=== PATIENT | male | born 1940 | race Caucasian/White ===

== ENCOUNTER 2020-05-08 06:13 | Inpatient (IN) ==
[2020-05-03 12:52] LABS: Basophils # 0.1 10*3/uL (0.0-0.2); Basophils % 0.9 % (0.0-0.8); Eosinophils # 0.1 10*3/uL (0.0-0.87); Hematocrit 44.9 VOL% (42.0-52.0); Hemoglobin 14.5 GM/DL (14.0-18.0); Immature Granulocytes % 0.7 %; Immature Granulocytes Absolute 0.06 #; Lymphocytes # 1.2 10*3/uL (1.4-4.0); Lymphocytes % 14.3 % (21.2-54.2); Mean Corpuscular HGB Conc 32.3 GM/DL (32-36); Mean Corpuscular Volume 90.3 FL (87-102); Mean Platelet Volume 9.1 FL (9.6-12.0); Monocytes % 7.6 % (1.7-12.7); Neutrophils % 75.5 % (38.7-73.9); Platelet Count 377 T/CUMM (130-400); Red Blood Count 4.97 MC/CUMM (3.8-5.5); Red Cell Distribution Width 16.1 % (9.3-17.3); White Blood Count 8.7 T/CUMM (4-12)
[2020-05-03 13:22] LABS: Calcium 9.4 MG/DL (8.5-10.1); Osmolality,Calculated 268.2 MOS/KG (273-304); Potassium 4.6 MMOL/L (3.5-5.1)
[2020-05-08] MEDS ORDERED: ERTAPENEM 1,000 MG in SODIUM CHLORIDE 0.9% 100 ML IV ONE (06:30)
[2020-05-08] MEDS ORDERED: LACTATED RINGERS 1,000 ML IV SCH (10:30)
[2020-05-08] MEDS ORDERED: ROPIVACAINE 0.5% 30 ML VIAL ONE (11:28)
[2020-05-08] MEDS ORDERED: LIDOCAINE 1% 5 ML VIAL ONE (11:28)
[2020-05-08] MEDS ORDERED: DEXAMETHASONE 4 MG/1 ML VIAL ONE (11:28)
[2020-05-08] MEDS ORDERED: MIDAZOLAM 2 MG/2 ML VIAL ONE (11:29)
[2020-05-08] MEDS ORDERED: fentaNYL 250 MCG/5 ML VIAL ONE (11:29)
[2020-05-08] MEDS ORDERED: ROCURONIUM 50 MG/5 ML VIAL IV ONE ×3 (12:32→13:56)
[2020-05-08] MEDS ORDERED: SEVOFLURANE 1 UNIT/15 MINUTE INH ONE (12:32)
[2020-05-08] MEDS ORDERED: ONDANSETRON 4 MG/2 ML VIAL ONE (12:32)
[2020-05-08] MEDS ORDERED: LACTATED RINGERS 1,000 ML IV ONE ×2 (12:32→16:46)
[2020-05-08] MEDS ORDERED: propofoL 200 MG/20 ML VIAL IV ONE (12:32)
[2020-05-08] MEDS ORDERED: PHENYLEPHRINE 1 MG/10 ML SYRINGE IV ONE ×2 (12:32→12:46)
[2020-05-08] MEDS ORDERED: LIDOCAINE 2% 5 ML VIAL ONE (12:32)
[2020-05-08] MEDS ORDERED: ACETAMINOPHEN 1,000 MG/100 ML VIAL IV ONE (12:32)
[2020-05-08] MEDS ORDERED: ETOMIDATE 40 MG/20 ML VIAL IV ONE (12:32)
[2020-05-08] MEDS ORDERED: fentaNYL 100 MCG/2 ML VIAL ONE (13:53)
[2020-05-08] MEDS ORDERED: NEOSTIGMINE 10 MG/10 ML VIAL ONE (16:46)
[2020-05-08] MEDS ORDERED: GLYCOPYRROLATE 0.4 MG/2 ML VIAL ONE (16:46)
[2020-05-08] MEDS ORDERED: ACETAMINOPHEN 325 MG TABLET PO PRN (16:53)
[2020-05-08 17:18] LABS: Bacteria,Urine Occasional /HPF (Few); Bilirubin,Urine Negative (Negative); Blood, Urine Small mg/dL (Negative); Glucose,Urine (UA) Negative (Negative); Ketones,Urine Negative (Negative); Mucus,Urine Occasional /LPF (Occasional); Nitrite,Urine Negative (Negative); Protein,Urine Negative; RBC,Urine 1 /HPF (0-4); Squamous Epithelial Cell,Urine Occasional /HPF (0-10); Urine Appearance CLEAR (Clear); Urine Color Yellow (Yellow); Urine Specific Gravity 1.008 (1.001-1.035); Urine Urobilinogen < 2.0 EU/DL (0.2-1.0); WBC,Urine 43 /HPF (0-6)
[2020-05-08] MEDS: DEXTROSE 5% LACTATED RINGERS 1,000 ML IV SCH (17:30)
[2020-05-08] MEDS: HYDROmorphone 2 MG/1 ML VIAL IV PRN ×2 (19:15→23:15)
[2020-05-08] MEDS: PIPERACILLIN/TAZOBACTAM 3,375 MG in SODIUM CHLORIDE 0.9% 100 ML IV SCH (22:36)
[2020-05-09] MEDS: DEXTROSE 5% LACTATED RINGERS 1,000 ML IV SCH (02:10)
[2020-05-09] MEDS: HYDROmorphone 2 MG/1 ML VIAL IV PRN ×2 (04:29→14:17)
[2020-05-09] MEDS: PIPERACILLIN/TAZOBACTAM 3,375 MG in SODIUM CHLORIDE 0.9% 100 ML IV SCH ×3 (04:32→21:22)
[2020-05-09 06:56] LABS: Basophils % 0.2 % (0.0-0.8); Hematocrit 38.4 VOL% (42.0-52.0); Immature Granulocytes % 0.5 %; Immature Granulocytes Absolute 0.06 #; Lymphocytes # 0.5 10*3/uL (1.4-4.0); Lymphocytes % 3.9 % (21.2-54.2); Mean Corpuscular HGB Conc 33.9 GM/DL (32-36); Mean Corpuscular Volume 88.9 FL (87-102); Mean Platelet Volume 9.4 FL (9.6-12.0); Monocytes % 7.3 % (1.7-12.7); Neutrophils % 88.1 % (38.7-73.9); Platelet Count 271 T/CUMM (130-400); Red Blood Count 4.32 MC/CUMM (3.8-5.5); Red Cell Distribution Width 16.8 % (9.3-17.3); White Blood Count 12.6 T/CUMM (4-12)
[2020-05-09 07:21] LABS: Calcium 8.6 MG/DL (8.5-10.1); Osmolality,Calculated 275.1 MOS/KG (273-304); Potassium 4.2 MMOL/L (3.5-5.1)
[2020-05-09 07:22] LABS: Band Neutrophils 2 % (0-10); Hypochromasia 1+; Lymphocytes 3 % (20-55); Microcytosis 1+; Segmented Neutrophils 92 % (50-85); Total Cells Counted 100
[2020-05-09] MEDS: ENOXAPARIN 40 MG/0.4 ML SYRINGE SUBCUT SCH (10:01)
[2020-05-09] MEDS: PANTOPRAZOLE 40 MG TABLET PO SCH (10:01)
[2020-05-10] MEDS: DEXTROSE 5% LACTATED RINGERS 1,000 ML IV SCH ×4 (00:27→20:41)
[2020-05-10] MEDS: ONDANSETRON 4 MG/2 ML VIAL IV PRN (01:45)
[2020-05-10] MEDS: PIPERACILLIN/TAZOBACTAM 3,375 MG in SODIUM CHLORIDE 0.9% 100 ML IV SCH ×3 (05:38→21:17)
[2020-05-10 07:39] LABS: Basophils % 0.1 % (0.0-0.8); Hematocrit 35.8 VOL% (42.0-52.0); Hemoglobin 11.9 GM/DL (14.0-18.0); Immature Granulocytes % 0.6 %; Immature Granulocytes Absolute 0.09 #; Lymphocytes # 0.6 10*3/uL (1.4-4.0); Lymphocytes % 3.9 % (21.2-54.2); Mean Corpuscular HGB Conc 33.2 GM/DL (32-36); Mean Corpuscular Volume 89.9 FL (87-102); Mean Platelet Volume 9.1 FL (9.6-12.0); Monocytes % 3.8 % (1.7-12.7); Neutrophils % 91.6 % (38.7-73.9); Platelet Count 312 T/CUMM (130-400); Red Blood Count 3.98 MC/CUMM (3.8-5.5); Red Cell Distribution Width 16.9 % (9.3-17.3); White Blood Count 14.1 T/CUMM (4-12)
[2020-05-10 07:49] LABS: Osmolality,Calculated 276.1 MOS/KG (273-304); Potassium 3.9 MMOL/L (3.5-5.1)
[2020-05-10] MEDS: PANTOPRAZOLE 40 MG TABLET PO SCH (08:55)
[2020-05-10] MEDS: ENOXAPARIN 40 MG/0.4 ML SYRINGE SUBCUT SCH (08:56)
[2020-05-10 10:06] LABS: Band Neutrophils 3 % (0-10); Lymphocytes 2 % (20-55); Platelet Estimate Normal; Segmented Neutrophils 92 % (50-85); Total Cells Counted 100
[2020-05-10] MEDS: METHOCARBAMOL INJ 500 MG in SODIUM CHLORIDE 0.9% 100 ML IV SCH ×2 (11:21→20:40)
[2020-05-11] MEDS: HYDROmorphone 2 MG/1 ML VIAL IV PRN ×2 (02:13→17:41)
[2020-05-11] MEDS: METHOCARBAMOL INJ 500 MG in SODIUM CHLORIDE 0.9% 100 ML IV SCH ×3 (03:55→20:57)
[2020-05-11] MEDS: PIPERACILLIN/TAZOBACTAM 3,375 MG in SODIUM CHLORIDE 0.9% 100 ML IV SCH ×3 (06:07→21:46)
[2020-05-11] MEDS: DEXTROSE 5% LACTATED RINGERS 1,000 ML IV SCH ×3 (08:26→22:15)
[2020-05-11] MEDS: PANTOPRAZOLE 40 MG TABLET PO SCH (08:26)
[2020-05-11] MEDS: ENOXAPARIN 40 MG/0.4 ML SYRINGE SUBCUT SCH (08:26)
[2020-05-11 11:49] LABS: Basophils % 0.1 % (0.0-0.8); Eosinophils % 0.1 % (0.00-10.9); Hematocrit 34.9 VOL% (42.0-52.0); Hemoglobin 11.3 GM/DL (14.0-18.0); Immature Granulocytes Absolute 0.29 #; Lymphocytes # 0.5 10*3/uL (1.4-4.0); Lymphocytes % 3.6 % (21.2-54.2); Mean Corpuscular HGB Conc 32.4 GM/DL (32-36); Mean Corpuscular Volume 91.8 FL (87-102); Mean Platelet Volume 9.3 FL (9.6-12.0); Monocytes % 2.9 % (1.7-12.7); Neutrophils % 91.3 % (38.7-73.9); Platelet Count 300 T/CUMM (130-400); Red Cell Distribution Width 16.9 % (9.3-17.3); White Blood Count 14.5 T/CUMM (4-12)
[2020-05-11 12:05] LABS: Calcium 8.6 MG/DL (8.5-10.1); Osmolality,Calculated 277.7 MOS/KG (273-304); Potassium 3.8 MMOL/L (3.5-5.1)
[2020-05-11 12:21] LABS: Anisocytosis 1+; Band Neutrophils 2 % (0-10); Hypersegmented Neutrophil Few; Lymphocytes 4 % (20-55); Macrocytosis Slight; Platelet Estimate Normal; Segmented Neutrophils 92 % (50-85); Total Cells Counted 100
[2020-05-12] MEDS: METHOCARBAMOL INJ 500 MG in SODIUM CHLORIDE 0.9% 100 ML IV SCH ×3 (03:53→20:20)
[2020-05-12] MEDS: DEXTROSE 5% LACTATED RINGERS 1,000 ML IV SCH ×3 (05:07→20:19)
[2020-05-12] MEDS: PIPERACILLIN/TAZOBACTAM 3,375 MG in SODIUM CHLORIDE 0.9% 100 ML IV SCH (05:59)
[2020-05-12 07:17] LABS: Basophils % 0.1 % (0.0-0.8); Eosinophils % 0.1 % (0.00-10.9); Hematocrit 33.3 VOL% (42.0-52.0); Hemoglobin 11.1 GM/DL (14.0-18.0); Immature Granulocytes % 1.2 %; Immature Granulocytes Absolute 0.14 #; Lymphocytes # 0.6 10*3/uL (1.4-4.0); Lymphocytes % 4.7 % (21.2-54.2); Mean Corpuscular HGB Conc 33.3 GM/DL (32-36); Mean Corpuscular Volume 90.7 FL (87-102); Mean Platelet Volume 9.4 FL (9.6-12.0); Monocytes % 4.3 % (1.7-12.7); Neutrophils % 89.6 % (38.7-73.9); Platelet Count 278 T/CUMM (130-400); Red Blood Count 3.67 MC/CUMM (3.8-5.5); Red Cell Distribution Width 17.2 % (9.3-17.3); White Blood Count 11.6 T/CUMM (4-12)
[2020-05-12 07:26] LABS: Calcium 8.9 MG/DL (8.5-10.1); Potassium 3.5 MMOL/L (3.5-5.1)
[2020-05-12 07:58] LABS: Band Neutrophils 2 % (0-10); Lymphocytes 6 % (20-55); Platelet Estimate Normal; Segmented Neutrophils 86 % (50-85); Total Cells Counted 100
[2020-05-12 07:59] LABS: Anisocytosis 2+; Macrocytosis Slight
[2020-05-12] MEDS: PANTOPRAZOLE 40 MG TABLET PO SCH (08:25)
[2020-05-12] MEDS: ENOXAPARIN 40 MG/0.4 ML SYRINGE SUBCUT SCH (08:25)
[2020-05-12] MEDS: HYDROmorphone 2 MG/1 ML VIAL IV PRN ×2 (08:27→13:29)
[2020-05-13] MEDS: HYDROmorphone 2 MG/1 ML VIAL IV PRN ×2 (02:44→17:57)
[2020-05-13 04:38] LABS: Basophils % 0.2 % (0.0-0.8); Eosinophils % 0.2 % (0.00-10.9); Hemoglobin 10.1 GM/DL (14.0-18.0); Immature Granulocytes % 1.3 %; Immature Granulocytes Absolute 0.12 #; Lymphocytes # 0.7 10*3/uL (1.4-4.0); Lymphocytes % 7.2 % (21.2-54.2); Mean Corpuscular HGB Conc 33.7 GM/DL (32-36); Mean Platelet Volume 9.5 FL (9.6-12.0); Monocytes % 6.7 % (1.7-12.7); Neutrophils % 84.4 % (38.7-73.9); Platelet Count 258 T/CUMM (130-400); Red Blood Count 3.37 MC/CUMM (3.8-5.5); Red Cell Distribution Width 17.2 % (9.3-17.3); White Blood Count 9.2 T/CUMM (4-12)
[2020-05-13] MEDS: METHOCARBAMOL INJ 500 MG in SODIUM CHLORIDE 0.9% 100 ML IV SCH ×3 (04:53→22:13)
[2020-05-13] MEDS: DEXTROSE 5% LACTATED RINGERS 1,000 ML IV SCH (05:00)
[2020-05-13 05:04] LABS: Calcium 8.3 MG/DL (8.5-10.1); Osmolality,Calculated 279.5 MOS/KG (273-304); Potassium 3.2 MMOL/L (3.5-5.1)
[2020-05-13] MEDS: ENOXAPARIN 40 MG/0.4 ML SYRINGE SUBCUT SCH (08:40)
[2020-05-13] MEDS: PANTOPRAZOLE 40 MG TABLET PO SCH (09:29)
[2020-05-14] MEDS: DEXTROSE 5% LACTATED RINGERS 1,000 ML IV SCH ×2 (04:50→07:30)
[2020-05-14] MEDS: METHOCARBAMOL INJ 500 MG in SODIUM CHLORIDE 0.9% 100 ML IV SCH ×3 (04:57→20:47)
[2020-05-14] MEDS: ENOXAPARIN 40 MG/0.4 ML SYRINGE SUBCUT SCH (08:52)
[2020-05-14] MEDS: PANTOPRAZOLE 40 MG TABLET PO SCH (09:53)
[2020-05-14] MEDS: HYDROmorphone 2 MG/1 ML VIAL IV PRN (12:10)
[2020-05-14] MEDS ORDERED: SELENIUM IV SCH (17:00)
[2020-05-14] MEDS ORDERED: MULTIVITAMIN IV SCH (17:00)
[2020-05-14] MEDS ORDERED: MANGANESE IV SCH (17:00)
[2020-05-14] MEDS ORDERED: ZINC IV SCH (17:00)
[2020-05-14] MEDS ORDERED: TRACE ELEMENTS (5) 1 ML in AMINO ACIDS/DEXT/LYTES 4.25-5% 2,000 ML IV SCH (17:00)
[2020-05-14] MEDS ORDERED: COPPER IV SCH (17:00)
[2020-05-14] MEDS ORDERED: [UNRECOGNIZED DRUG - OTHER] IV SCH (17:00)
[2020-05-15] MEDS: DEXTROSE 5% LACTATED RINGERS 1,000 ML IV SCH ×5 (02:14→16:32)
[2020-05-15] MEDS: METHOCARBAMOL INJ 500 MG in SODIUM CHLORIDE 0.9% 100 ML IV SCH ×3 (03:38→21:31)
[2020-05-15 06:03] LABS: Calcium 8.2 MG/DL (8.5-10.1); Osmolality,Calculated 278.7 MOS/KG (273-304); Potassium 2.7 MMOL/L (3.5-5.1)
[2020-05-15] MEDS: ENOXAPARIN 40 MG/0.4 ML SYRINGE SUBCUT SCH (09:43)
[2020-05-15] MEDS: PANTOPRAZOLE 40 MG TABLET PO SCH (09:43)
[2020-05-15] MEDS: POTASSIUM CHLORIDE RIDER 10 MEQ in PREMIX 1 EACH IV PRN ×2 (11:00→12:01)
[2020-05-15] MEDS ORDERED: SELENIUM IV SCH (12:30)
[2020-05-15] MEDS ORDERED: ZINC IV SCH (12:30)
[2020-05-15] MEDS ORDERED: MANGANESE IV SCH (12:30)
[2020-05-15] MEDS ORDERED: MULTIVITAMIN IV SCH (12:30)
[2020-05-15] MEDS ORDERED: POTASSIUM CHLORIDE RIDER 10 MEQ in PREMIX 1 EACH IV SCH (12:30)
[2020-05-15] MEDS ORDERED: COPPER IV SCH (12:30)
[2020-05-15] MEDS ORDERED: [UNRECOGNIZED DRUG - OTHER] IV SCH (12:30)
[2020-05-15] MEDS ORDERED: POTASSIUM PHOSPHATE 30 MMOL in SODIUM CHLORIDE 0.9% 250 ML IV ONE (13:00)
[2020-05-15] MEDS ORDERED: TRACE ELEMENTS (5) 1 ML, MULTIVITAMIN INJ 10 ML in AMINO ACIDS/DEXT/LYTES 4.25-5% 2,000 ML IV SCH (17:00)
[2020-05-15] MEDS: MANGANESE IV SCH (17:39)
[2020-05-15] MEDS: MULTIVITAMIN IV SCH (17:39)
[2020-05-15] MEDS: SELENIUM IV SCH (17:39)
[2020-05-15] MEDS: COPPER IV SCH (17:39)
[2020-05-15] MEDS: ZINC IV SCH (17:39)
[2020-05-15] MEDS: [UNRECOGNIZED DRUG - OTHER] IV SCH (17:39)
[2020-05-16] MEDS: POTASSIUM CHLORIDE RIDER 10 MEQ in PREMIX 1 EACH IV PRN ×4 (02:30→21:51)
[2020-05-16] MEDS: METHOCARBAMOL INJ 500 MG in SODIUM CHLORIDE 0.9% 100 ML IV SCH ×2 (04:51→16:59)
[2020-05-16 05:50] LABS: Basophils % 0.4 % (0.0-0.8); Eosinophils # 0.3 10*3/uL (0.0-0.87); Hematocrit 28.6 VOL% (42.0-52.0); Hemoglobin 9.9 GM/DL (14.0-18.0); Immature Granulocytes % 6.1 %; Lymphocytes # 1.1 10*3/uL (1.4-4.0); Lymphocytes % 10.9 % (21.2-54.2); Mean Corpuscular HGB Conc 34.6 GM/DL (32-36); Mean Corpuscular Volume 86.1 FL (87-102); Monocytes % 9.3 % (1.7-12.7); Neutrophils % 70.3 % (38.7-73.9); Platelet Count 277 T/CUMM (130-400); Red Blood Count 3.32 MC/CUMM (3.8-5.5); Red Cell Distribution Width 17.3 % (9.3-17.3); White Blood Count 9.8 T/CUMM (4-12)
[2020-05-16 06:09] LABS: Calcium 8.6 MG/DL (8.5-10.1); Osmolality,Calculated 272.2 MOS/KG (273-304)
[2020-05-16 06:11] LABS: Calcium 8.2 MG/DL (8.5-10.1); Potassium 3.1 MMOL/L (3.5-5.1)
[2020-05-16 06:25] LABS: Atypical Lymphocytes Few; Band Neutrophils 5 % (0-10); Eosinophils 6 % (0-10); Lymphocytes 19 % (20-55); Myelocytes 1 %; Platelet Estimate Normal; Segmented Neutrophils 63 % (50-85); Total Cells Counted 100
[2020-05-16 06:26] LABS: Anisocytosis 1+
[2020-05-16] MEDS: DEXTROSE 5% LACTATED RINGERS 1,000 ML IV SCH ×2 (08:15→12:53)
[2020-05-16] MEDS: PANTOPRAZOLE 40 MG TABLET PO SCH (08:18)
[2020-05-16] MEDS ORDERED: POTASSIUM PHOSPHATE 30 MMOL in SODIUM CHLORIDE 0.9% 250 ML IV ONE (08:30)
[2020-05-16] MEDS: ENOXAPARIN 40 MG/0.4 ML SYRINGE SUBCUT SCH (09:41)
[2020-05-16] MEDS: ONDANSETRON 4 MG/2 ML VIAL IV PRN (09:41)
[2020-05-16] MEDS: FAT EMULSION 20% 250 ML IV SCH (13:50)
[2020-05-16 14:12] LABS: Calcium 8.2 MG/DL (8.5-10.1); Potassium 3.4 MMOL/L (3.5-5.1)
[2020-05-16] MEDS: SELENIUM IV SCH (17:01)
[2020-05-16] MEDS: MANGANESE IV SCH (17:01)
[2020-05-16] MEDS: ZINC IV SCH (17:01)
[2020-05-16] MEDS: COPPER IV SCH (17:01)
[2020-05-16] MEDS: [UNRECOGNIZED DRUG - OTHER] IV SCH (17:01)
[2020-05-16] MEDS: MULTIVITAMIN IV SCH (17:01)
[2020-05-17] MEDS: METHOCARBAMOL INJ 500 MG in SODIUM CHLORIDE 0.9% 100 ML IV SCH (00:30)
[2020-05-17] MEDS: POTASSIUM CHLORIDE RIDER 10 MEQ in PREMIX 1 EACH IV PRN ×3 (01:34→16:28)
[2020-05-17] MEDS: DEXTROSE 5% LACTATED RINGERS 1,000 ML IV SCH ×3 (03:14→15:55)
[2020-05-17] MEDS ORDERED: MAGNESIUM SULF RIDER 2 GM in PREMIX 1 EACH IV ONE (07:30)
[2020-05-17 07:40] LABS: Basophils % 0.3 % (0.0-0.8); Eosinophils # 0.3 10*3/uL (0.0-0.87); Hematocrit 29.2 VOL% (42.0-52.0); Hemoglobin 9.9 GM/DL (14.0-18.0); Immature Granulocytes % 6.1 %; Immature Granulocytes Absolute 0.94 #; Lymphocytes # 0.9 10*3/uL (1.4-4.0); Lymphocytes % 5.9 % (21.2-54.2); Mean Corpuscular HGB Conc 33.9 GM/DL (32-36); Mean Corpuscular Volume 89.6 FL (87-102); Mean Platelet Volume 9.9 FL (9.6-12.0); Monocytes % 6.3 % (1.7-12.7); NRBC # 0.02 10*3/uL; Neutrophils % 79.4 % (38.7-73.9); Platelet Count 295 T/CUMM (130-400); Red Blood Count 3.26 MC/CUMM (3.8-5.5); Red Cell Distribution Width 17.8 % (9.3-17.3); White Blood Count 15.5 T/CUMM (4-12)
[2020-05-17] MEDS ORDERED: traMADol 50 MG TABLET PO PRN (07:53)
[2020-05-17 07:55] LABS: Calcium 7.8 MG/DL (8.5-10.1); Potassium 3.7 MMOL/L (3.5-5.1)
[2020-05-17] MEDS: LEVOFLOXACIN INJ 750 MG in PREMIX 1 EACH IV SCH (08:11)
[2020-05-17] MEDS: PANTOPRAZOLE 40 MG TABLET PO SCH (09:15)
[2020-05-17] MEDS: POLYETHYLENE GLYCOL POWDER 17 GM PACK PO SCH (09:15)
[2020-05-17] MEDS: ENOXAPARIN 40 MG/0.4 ML SYRINGE SUBCUT SCH (10:01)
[2020-05-17 10:02] LABS: Band Neutrophils 2 % (0-10); Eosinophils 1 % (0-10); Hypochromasia 1+; Lymphocytes 4 % (20-55); Segmented Neutrophils 83 % (50-85); Total Cells Counted 100
[2020-05-17 10:03] LABS: Microcytosis 1+
[2020-05-17] MEDS: PIPERACILLIN/TAZOBACTAM 3,375 MG in SODIUM CHLORIDE 0.9% 100 ML IV SCH ×2 (10:03→18:10)
[2020-05-17] MEDS ORDERED: ACETAMINOPHEN 650 MG SUPP RECTAL PRN (12:12)
[2020-05-17] MEDS: POTASSIUM CHLORIDE RIDER 10 MEQ in PREMIX 1 EACH IV SCH ×2 (12:14→12:15)
[2020-05-17] MEDS: DONEPEZIL 10 MG TABLET PO SCH (13:03)
[2020-05-17] MEDS: COPPER IV SCH (17:04)
[2020-05-17] MEDS: [UNRECOGNIZED DRUG - OTHER] IV SCH (17:04)
[2020-05-17] MEDS: MULTIVITAMIN IV SCH (17:04)
[2020-05-17] MEDS: SELENIUM IV SCH (17:04)
[2020-05-17] MEDS: ZINC IV SCH (17:04)
[2020-05-17] MEDS: MANGANESE IV SCH (17:04)
[2020-05-17] MEDS: MEMANTINE 10 MG TABLET PO SCH (20:10)
[2020-05-18] MEDS: PIPERACILLIN/TAZOBACTAM 3,375 MG in SODIUM CHLORIDE 0.9% 100 ML IV SCH ×3 (00:57→16:57)
[2020-05-18] MEDS: DEXTROSE 5% LACTATED RINGERS 1,000 ML IV SCH ×3 (08:02→12:49)
[2020-05-18] MEDS: ENOXAPARIN 40 MG/0.4 ML SYRINGE SUBCUT SCH (08:02)
[2020-05-18] MEDS: LEVOFLOXACIN INJ 750 MG in PREMIX 1 EACH IV SCH (08:02)
[2020-05-18] MEDS: FAT EMULSION 20% 250 ML IV SCH (08:03)
[2020-05-18] MEDS: OXYBUTYNIN XL 10 MG TABLET PO SCH (08:04)
[2020-05-18] MEDS: DONEPEZIL 10 MG TABLET PO SCH (08:04)
[2020-05-18] MEDS: DUTASTERIDE 0.5 MG CAPSULE PO SCH (08:04)
[2020-05-18] MEDS: POLYETHYLENE GLYCOL POWDER 17 GM PACK PO SCH (08:05)
[2020-05-18] MEDS: MEMANTINE 10 MG TABLET PO SCH ×2 (08:05→20:36)
[2020-05-18] MEDS: PANTOPRAZOLE 40 MG TABLET PO SCH (08:06)
[2020-05-18] MEDS ORDERED: [UNRECOGNIZED DRUG - OTHER] PO SCH (09:00)
[2020-05-18] MEDS ORDERED: MEMANTINE DONEPEZIL PO SCH (09:00)
[2020-05-18] MEDS: MULTIVITAMIN IV SCH (12:42)
[2020-05-18] MEDS: ZINC IV SCH (12:42)
[2020-05-18] MEDS: MANGANESE IV SCH (12:42)
[2020-05-18] MEDS: COPPER IV SCH (12:42)
[2020-05-18] MEDS: SELENIUM IV SCH (12:42)
[2020-05-18] MEDS: [UNRECOGNIZED DRUG - OTHER] IV SCH (12:42)
[2020-05-18] MEDS: ALBUTEROL/IPRATROPIUM 3 ML NEB RESP TX SCH ×2 (13:40→19:00)
[2020-05-19] MEDS: ALBUTEROL/IPRATROPIUM 3 ML NEB RESP TX SCH ×4 (00:12→19:11)
[2020-05-19] MEDS: PIPERACILLIN/TAZOBACTAM 3,375 MG in SODIUM CHLORIDE 0.9% 100 ML IV SCH ×3 (01:42→18:51)
[2020-05-19 06:13] LABS: Basophils # 0.1 10*3/uL (0.0-0.2); Basophils % 0.4 % (0.0-0.8); Eosinophils # 0.3 10*3/uL (0.0-0.87); Eosinophils % 2.1 % (0.00-10.9); Hemoglobin 9.2 GM/DL (14.0-18.0); Immature Granulocytes % 8.4 %; Immature Granulocytes Absolute 1.09 #; Lymphocytes # 0.8 10*3/uL (1.4-4.0); Mean Corpuscular HGB Conc 31.7 GM/DL (32-36); Mean Corpuscular Volume 92.7 FL (87-102); Mean Platelet Volume 10.2 FL (9.6-12.0); Neutrophils % 76.1 % (38.7-73.9); Platelet Count 335 T/CUMM (130-400); Red Blood Count 3.13 MC/CUMM (3.8-5.5); Red Cell Distribution Width 18.9 % (9.3-17.3); White Blood Count 12.9 T/CUMM (4-12)
[2020-05-19 06:35] LABS: Band Neutrophils 1 % (0-10); Eosinophils 1 % (0-10); Hypochromasia 1+; Lymphocytes 7 % (20-55); Microcytosis 1+; Ovalocytes Slight; Platelet Estimate Adequate; Segmented Neutrophils 83 % (50-85); Total Cells Counted 100
[2020-05-19] MEDS: LEVOFLOXACIN INJ 750 MG in PREMIX 1 EACH IV SCH (08:47)
[2020-05-19] MEDS: ENOXAPARIN 40 MG/0.4 ML SYRINGE SUBCUT SCH (08:50)
[2020-05-19] MEDS ORDERED: FUROSEMIDE 40 MG/4 ML VIAL IV ONE (09:04)
[2020-05-19] MEDS: MEMANTINE 10 MG TABLET PO SCH ×2 (10:25→21:23)
[2020-05-19] MEDS: PANTOPRAZOLE 40 MG TABLET PO SCH (10:26)
[2020-05-19] MEDS: DONEPEZIL 10 MG TABLET PO SCH (10:26)
[2020-05-19] MEDS: DUTASTERIDE 0.5 MG CAPSULE PO SCH (10:27)
[2020-05-19] MEDS: OXYBUTYNIN XL 10 MG TABLET PO SCH (10:27)
[2020-05-19] MEDS: POLYETHYLENE GLYCOL POWDER 17 GM PACK PO SCH (10:27)
[2020-05-19] MEDS: [UNRECOGNIZED DRUG - OTHER] IV SCH (14:15)
[2020-05-19] MEDS: SELENIUM IV SCH (14:15)
[2020-05-19] MEDS: ZINC IV SCH (14:15)
[2020-05-19] MEDS: COPPER IV SCH (14:15)
[2020-05-19] MEDS: MANGANESE IV SCH (14:15)
[2020-05-19] MEDS: MULTIVITAMIN IV SCH (14:15)
[2020-05-19] MEDS: DEXTROSE 5% LACTATED RINGERS 1,000 ML IV SCH (17:00)
[2020-05-20] MEDS: PIPERACILLIN/TAZOBACTAM 3,375 MG in SODIUM CHLORIDE 0.9% 100 ML IV SCH ×3 (00:58→17:11)
[2020-05-20] MEDS: ALBUTEROL/IPRATROPIUM 3 ML NEB RESP TX SCH ×4 (01:00→19:28)
[2020-05-20 05:32] LABS: Calcium 8.3 MG/DL (8.5-10.1); Potassium 3.8 MMOL/L (3.5-5.1)
[2020-05-20] MEDS: POTASSIUM CHLORIDE RIDER 10 MEQ in PREMIX 1 EACH IV PRN (05:46)
[2020-05-20] MEDS: DONEPEZIL 10 MG TABLET PO SCH (10:11)
[2020-05-20] MEDS: DUTASTERIDE 0.5 MG CAPSULE PO SCH (10:14)
[2020-05-20] MEDS: OXYBUTYNIN XL 10 MG TABLET PO SCH (10:14)
[2020-05-20] MEDS: ENOXAPARIN 40 MG/0.4 ML SYRINGE SUBCUT SCH (10:14)
[2020-05-20] MEDS: POLYETHYLENE GLYCOL POWDER 17 GM PACK PO SCH (10:14)
[2020-05-20] MEDS: MEMANTINE 10 MG TABLET PO SCH ×2 (10:15→20:37)
[2020-05-20] MEDS: PANTOPRAZOLE 40 MG TABLET PO SCH (10:15)
[2020-05-20] MEDS: LEVOFLOXACIN INJ 750 MG in PREMIX 1 EACH IV SCH (10:26)
[2020-05-20] MEDS: FAT EMULSION 20% 250 ML IV SCH (10:42)
[2020-05-20] MEDS: COPPER IV SCH (15:13)
[2020-05-20] MEDS: SELENIUM IV SCH (15:13)
[2020-05-20] MEDS: MULTIVITAMIN IV SCH (15:13)
[2020-05-20] MEDS: ZINC IV SCH (15:13)
[2020-05-20] MEDS: [UNRECOGNIZED DRUG - OTHER] IV SCH (15:13)
[2020-05-20] MEDS: MANGANESE IV SCH (15:13)
[2020-05-21] MEDS: ALBUTEROL/IPRATROPIUM 3 ML NEB RESP TX SCH ×4 (00:21→19:32)
[2020-05-21] MEDS: PIPERACILLIN/TAZOBACTAM 3,375 MG in SODIUM CHLORIDE 0.9% 100 ML IV SCH ×3 (00:44→16:16)
[2020-05-21] MEDS: LEVOFLOXACIN INJ 750 MG in PREMIX 1 EACH IV SCH (08:09)
[2020-05-21] MEDS: ENOXAPARIN 40 MG/0.4 ML SYRINGE SUBCUT SCH (08:15)
[2020-05-21] MEDS: PANTOPRAZOLE 40 MG TABLET PO SCH (08:15)
[2020-05-21] MEDS: DUTASTERIDE 0.5 MG CAPSULE PO SCH (08:15)
[2020-05-21] MEDS: MEMANTINE 10 MG TABLET PO SCH ×2 (08:15→21:10)
[2020-05-21] MEDS: DONEPEZIL 10 MG TABLET PO SCH (08:16)
[2020-05-21] MEDS: POLYETHYLENE GLYCOL POWDER 17 GM PACK PO SCH (08:16)
[2020-05-21] MEDS: OXYBUTYNIN XL 10 MG TABLET PO SCH (10:18)
[2020-05-21] MEDS: COPPER IV SCH (12:30)
[2020-05-21] MEDS: [UNRECOGNIZED DRUG - OTHER] IV SCH (12:30)
[2020-05-21] MEDS: MULTIVITAMIN IV SCH (12:30)
[2020-05-21] MEDS: MANGANESE IV SCH (12:30)
[2020-05-21] MEDS: SELENIUM IV SCH (12:30)
[2020-05-21] MEDS: ZINC IV SCH (12:30)
[2020-05-21] MEDS: DEXTROSE 5% LACTATED RINGERS 1,000 ML IV SCH (15:27)
[2020-05-22] MEDS: ALBUTEROL/IPRATROPIUM 3 ML NEB RESP TX SCH ×3 (01:03→13:31)
[2020-05-22] MEDS: PIPERACILLIN/TAZOBACTAM 3,375 MG in SODIUM CHLORIDE 0.9% 100 ML IV SCH ×2 (01:51→09:00)
[2020-05-22] MEDS: DEXTROSE 5% LACTATED RINGERS 1,000 ML IV SCH (08:28)
[2020-05-22] MEDS: LEVOFLOXACIN INJ 750 MG in PREMIX 1 EACH IV SCH (08:35)
[2020-05-22] MEDS: OXYBUTYNIN XL 10 MG TABLET PO SCH (08:36)
[2020-05-22] MEDS: ENOXAPARIN 40 MG/0.4 ML SYRINGE SUBCUT SCH (08:36)
[2020-05-22] MEDS: DONEPEZIL 10 MG TABLET PO SCH (08:36)
[2020-05-22] MEDS: POLYETHYLENE GLYCOL POWDER 17 GM PACK PO SCH (08:36)
[2020-05-22] MEDS: DUTASTERIDE 0.5 MG CAPSULE PO SCH (08:36)
[2020-05-22] MEDS: MEMANTINE 10 MG TABLET PO SCH (08:37)
[2020-05-22] MEDS: PANTOPRAZOLE 40 MG TABLET PO SCH (08:37)
[2020-05-22] MEDS ORDERED: LIDOCAINE 1%/EPI INJ 20 ML VIAL MISC INJ ONE (11:10)
[2020-05-22 16:11] VITALS: BP 107/61
[2020-05-23] MEDS ORDERED: LEVOFLOXACIN 500 MG TABLET PO SCH (09:00)
== END 2020-05-22 16:36 | DRG 329 ==
LOC: N.OR 06:13 → N.SDSINP 06:15 → N.3E 16:53
PROVIDERS: ADMIT Student in an Organized Health Care Education/Training Program; ATTEND Student in an Organized Health Care Education/Training Program

== ENCOUNTER 2021-04-15 10:26 | Inpatient (IN) ==
[2021-04-15] MEDS ORDERED: SODIUM CHLORIDE 0.9% 1,000 ML IV STA (11:27)
[2021-04-15] MEDS ORDERED: HYDROmorphone 2 MG/1 ML VIAL IV STA (11:27)
[2021-04-15] MEDS ORDERED: ONDANSETRON 4 MG/2 ML VIAL IV STA (11:27)
[2021-04-15 12:38] LABS: Basophils # 0.1 10*3/uL (0.0-0.2); Basophils % 0.4 % (0.0-0.8); Eosinophils % 0.1 % (0.00-10.9); Hematocrit 38.6 VOL% (42.0-52.0); Immature Granulocytes Absolute 0.19 #; Lymphocytes # 0.6 10*3/uL (1.4-4.0); Mean Corpuscular HGB Conc 33.7 GM/DL (32-36); Mean Corpuscular Volume 87.1 FL (87-102); Mean Platelet Volume 10.8 FL (9.6-12.0); Monocytes % 5.2 % (1.7-12.7); Neutrophils % 90.3 % (38.7-73.9); Platelet Count 336 T/CUMM (130-400); Red Blood Count 4.43 MC/CUMM (3.8-5.5); Red Cell Distribution Width 15.9 % (9.3-17.3); White Blood Count 19.9 T/CUMM (4-12)
[2021-04-15 12:40] LABS: Bacteria,Urine Occasional /HPF (Few); Bilirubin,Urine Negative (Negative); Blood, Urine Negative (Negative); Glucose,Urine (UA) >=500 mg/dL (Negative); Ketones,Urine 5 mg/dL (Negative); Mucus,Urine Occasional /LPF (Occasional); Nitrite,Urine Negative (Negative); Protein,Urine Negative; RBC,Urine 1 /HPF (0-4); Squamous Epithelial Cell,Urine Occasional /HPF (0-10); Urine Appearance CLEAR (Clear); Urine Color Yellow (Yellow); Urine Specific Gravity 1.026 (1.001-1.035); Urine Urobilinogen < 2.0 EU/DL (<2.0)
[2021-04-15 12:50] LABS: PT Patient Result 10.8 SECS (10.5-12.0); Partial Thromboplastin Time 31.8 SECS (23.8-32.1)
[2021-04-15 12:56] LABS: Alanine Aminotransferase 38 U/L (16-61); Albumin 3.1 G/DL (3.4-5.0); Alkaline Phosphatase 76 U/L (45-117); Aspartate Amino Transferase 62 U/L (0-37); Blood Urea Nitrogen 12 MG/DL (7-18); Calcium 8.8 MG/DL (8.5-10.1); Carbon Dioxide 21 MMOL/L (21-32); Estimated Glom Filtration Rate 64 ML/MIN; Glucose 459 MG/DL (74-106); Osmolality,Calculated 276.1 MOS/KG (273-304); Sodium 128 MMOL/L (136-145); Total Protein 7.6 G/DL (6.4-8.2)
[2021-04-15 15:00] LABS: Hypochromia Slight; Lymphocytes 4 % (20-55); Platelet Estimate Normal; Segmented Neutrophils 94 % (50-85); Total Cells Counted 100
[2021-04-15] MEDS ORDERED: ONDANSETRON 4 MG/2 ML VIAL IV PRN (15:15)
[2021-04-15] MEDS ORDERED: ACETAMINOPHEN 325 MG TABLET PO PRN (15:15)
[2021-04-15] MEDS: SODIUM CHLORIDE 0.9% 1,000 ML IV SCH (16:01)
[2021-04-15] MEDS: HYDROmorphone 2 MG/1 ML VIAL IV PRN ×2 (16:03→22:42)
[2021-04-15] MEDS ORDERED: GLUCAGON 1 MG VIAL IM PRN (17:30)
[2021-04-15] MEDS ORDERED: DEXTROSE 10% 250 ML BAG IV PRN (17:38)
[2021-04-15] MEDS ORDERED: MAGNESIUM HYDROXIDE SUSP 30 ML UDCUP PO PRN (18:04)
[2021-04-15] MEDS ORDERED: INSULIN LISPRO 100 UNIT/ML ONE (18:36)
[2021-04-15] MEDS ORDERED: INSULIN LISPRO 100 UNIT/ML SUBCUT STA (18:46)
[2021-04-15] MEDS ORDERED: MEMANTINE DONEPEZIL PO SCH (21:00)
[2021-04-15] MEDS: ZALEPLON 5 MG CAPSULE PO PRN (22:42)
[2021-04-15] MEDS: DOCUSATE SODIUM 100 MG CAPSULE PO SCH (22:42)
[2021-04-16] MEDS: INSULIN LISPRO 100 UNIT/ML SUBCUT SCH ×5 (00:08→21:40)
[2021-04-16] MEDS: SODIUM CHLORIDE 0.9% 1,000 ML IV SCH ×3 (04:45→21:08)
[2021-04-16 05:43] LABS: Basophils # 0.1 10*3/uL (0.0-0.2); Basophils % 0.6 % (0.0-0.8); Eosinophils # 0.3 10*3/uL (0.0-0.87); Hematocrit 32.6 VOL% (42.0-52.0); Hemoglobin 10.8 GM/DL (14.0-18.0); Lymphocytes # 1.5 10*3/uL (1.4-4.0); Lymphocytes % 14.7 % (21.2-54.2); Mean Corpuscular HGB Conc 33.1 GM/DL (32-36); Mean Corpuscular Volume 89.6 FL (87-102); Mean Platelet Volume 9.7 FL (9.6-12.0); Monocytes % 11.6 % (1.7-12.7); Neutrophils % 69.1 % (38.7-73.9); Platelet Count 296 T/CUMM (130-400); Red Blood Count 3.64 MC/CUMM (3.8-5.5); Red Cell Distribution Width 16.3 % (9.3-17.3); White Blood Count 9.9 T/CUMM (4-12)
[2021-04-16 06:10] LABS: Calcium 8.6 MG/DL (8.5-10.1); Osmolality,Calculated 271.7 MOS/KG (273-304); Potassium 4.1 MMOL/L (3.5-5.1)
[2021-04-16] MEDS ORDERED: ceFAZolin 2,000 MG/50 ML DUPLEX IV ONE (06:30)
[2021-04-16] MEDS: PANTOPRAZOLE 40 MG TABLET PO SCH (10:22)
[2021-04-16] MEDS: DOCUSATE SODIUM 100 MG CAPSULE PO SCH ×2 (10:22→21:40)
[2021-04-16] MEDS: DONEPEZIL 10 MG TABLET PO SCH (10:22)
[2021-04-16] MEDS: OXYBUTYNIN XL 10 MG TABLET PO SCH (10:22)
[2021-04-16] MEDS: DUTASTERIDE 0.5 MG CAPSULE PO SCH (10:22)
[2021-04-16] MEDS: MEMANTINE 10 MG TABLET PO SCH ×2 (10:22→21:41)
[2021-04-16] MEDS: METOPROLOL TARTRATE 25 MG TABLET PO SCH ×2 (10:25→21:40)
[2021-04-16] MEDS ORDERED: DEXMEDETOMIDINE 200 MCG/2 ML VIAL ONE (13:10)
[2021-04-16] MEDS ORDERED: DEXAMETHASONE 4 MG/1 ML VIAL ONE (13:11)
[2021-04-16] MEDS ORDERED: LIDOCAINE 1% 5 ML VIAL ONE (13:11)
[2021-04-16] MEDS ORDERED: ROPIVACAINE 0.5% 30 ML VIAL ONE (13:11)
[2021-04-16] MEDS ORDERED: LIDOCAINE 2% 5 ML VIAL ONE (13:18)
[2021-04-16] MEDS ORDERED: ONDANSETRON 4 MG/2 ML VIAL ONE (13:18)
[2021-04-16] MEDS ORDERED: ACETAMINOPHEN INJ 1,000 MG/100 ML VIAL IV ONE (13:18)
[2021-04-16] MEDS ORDERED: propofoL 200 MG/20 ML VIAL IV ONE (13:18)
[2021-04-16] MEDS ORDERED: fentaNYL 100 MCG/2 ML VIAL ONE (13:19)
[2021-04-16] MEDS ORDERED: PHENYLEPHRINE 1 MG/10 ML SYRINGE IV ONE ×2 (14:05→18:14)
[2021-04-16] MEDS ORDERED: SEVOFLURANE 1 UNIT/15 MINUTE INH ONE ×5 (16:20→18:07)
[2021-04-16] MEDS ORDERED: PHENYLEPHRINE 10 MG/1 ML VIAL IV ONE (16:40)
[2021-04-16] MEDS ORDERED: SODIUM CHLORIDE 0.9% 0 ML IV ONE (16:40)
[2021-04-16] MEDS ORDERED: ePHEDrine 50 MG/ML VIAL ONE (16:41)
[2021-04-16] MEDS ORDERED: MORPHINE 2 MG/1 ML SYRINGE IV PRN ×2 (16:50)
[2021-04-16] MEDS ORDERED: ceFAZolin 1,000 MG VIAL ONE (17:17)
[2021-04-16] MEDS ORDERED: SODIUM CHLORIDE 0.9% 250 ML IV ONE (17:36)
[2021-04-16] MEDS ORDERED: LACTATED RINGERS 1,000 ML IV ONE (17:36)
[2021-04-16] MEDS ORDERED: BACITRACIN OINT 0.9 GM PACK TOP ONE (17:38)
[2021-04-16] MEDS: ceFAZolin 2,000 MG/50 ML DUPLEX IV SCH (21:00)
[2021-04-16] MEDS ORDERED: HALOPERIDOL 5 MG/ML AMP IM ONE (21:59)
[2021-04-17] MEDS: SODIUM CHLORIDE 0.9% 1,000 ML IV SCH (03:38)
[2021-04-17] MEDS: ceFAZolin 2,000 MG/50 ML DUPLEX IV SCH (04:24)
[2021-04-17 06:32] LABS: Basophils % 0.2 % (0.0-0.8); Hematocrit 29.4 VOL% (42.0-52.0); Hemoglobin 9.6 GM/DL (14.0-18.0); Immature Granulocytes % 1.3 %; Immature Granulocytes Absolute 0.13 #; Lymphocytes % 9.7 % (21.2-54.2); Mean Corpuscular HGB Conc 32.7 GM/DL (32-36); Mean Platelet Volume 10.3 FL (9.6-12.0); Monocytes % 8.5 % (1.7-12.7); Neutrophils % 80.3 % (38.7-73.9); Platelet Count 248 T/CUMM (130-400); Red Blood Count 3.23 MC/CUMM (3.8-5.5); Red Cell Distribution Width 16.2 % (9.3-17.3); White Blood Count 9.9 T/CUMM (4-12)
[2021-04-17 06:56] LABS: Calcium 8.5 MG/DL (8.5-10.1); Osmolality,Calculated 276.4 MOS/KG (273-304)
[2021-04-17 07:06] LABS: Alanine Aminotransferase 13 U/L (16-61); Albumin 2.2 G/DL (3.4-5.0); Alkaline Phosphatase 55 U/L (45-117); Aspartate Amino Transferase 24 U/L (0-37); Bilirubin,Total < 0.39 MG/DL (0.20-1.00); Blood Urea Nitrogen 10 MG/DL (7-18); Calcium 8.4 MG/DL (8.5-10.1); Carbon Dioxide 22 MMOL/L (21-32); Estimated Glom Filtration Rate 88 ML/MIN; Glucose 310 MG/DL (74-106); Osmolality,Calculated 278.2 MOS/KG (273-304); Sodium 134 MMOL/L (136-145); Total Protein 6.1 G/DL (6.4-8.2)
[2021-04-17] MEDS ORDERED: NITROGLYCERIN 0.1 MG/HR PATCH TRANSDERM SCH (09:00)
[2021-04-17] MEDS ORDERED: ENOXAPARIN 30 MG/0.3 ML SYRINGE SUBCUT SCH (09:00)
[2021-04-17] MEDS: DUTASTERIDE 0.5 MG CAPSULE PO SCH (09:02)
[2021-04-17] MEDS: DONEPEZIL 10 MG TABLET PO SCH (09:02)
[2021-04-17] MEDS: PANTOPRAZOLE 40 MG TABLET PO SCH (09:02)
[2021-04-17] MEDS: MEMANTINE 10 MG TABLET PO SCH ×2 (09:02→20:27)
[2021-04-17] MEDS: METOPROLOL TARTRATE 25 MG TABLET PO SCH ×2 (09:02→20:27)
[2021-04-17] MEDS: ASPIRIN EC 81 MG TABLET PO SCH (09:02)
[2021-04-17] MEDS: DOCUSATE SODIUM 100 MG CAPSULE PO SCH ×2 (09:02→20:27)
[2021-04-17] MEDS: OXYBUTYNIN XL 10 MG TABLET PO SCH (09:02)
[2021-04-17] MEDS: INSULIN LISPRO 100 UNIT/ML SUBCUT SCH ×4 (12:31→20:28)
[2021-04-17] MEDS: FONDAPARINUX 2.5 MG/0.5 ML SYRINGE SUBCUT SCH (12:32)
[2021-04-17] MEDS: ZALEPLON 5 MG CAPSULE PO PRN (20:27)
[2021-04-18 05:12] LABS: Basophils # 0.1 10*3/uL (0.0-0.2); Basophils % 0.7 % (0.0-0.8); Eosinophils # 0.3 10*3/uL (0.0-0.87); Eosinophils % 2.6 % (0.00-10.9); Hematocrit 33.1 VOL% (42.0-52.0); Hemoglobin 10.6 GM/DL (14.0-18.0); Immature Granulocytes % 2.1 %; Immature Granulocytes Absolute 0.22 #; Lymphocytes # 1.8 10*3/uL (1.4-4.0); Lymphocytes % 17.1 % (21.2-54.2); Mean Corpuscular Volume 90.9 FL (87-102); Mean Platelet Volume 9.9 FL (9.6-12.0); Neutrophils % 67.5 % (38.7-73.9); Platelet Count 343 T/CUMM (130-400); Red Blood Count 3.64 MC/CUMM (3.8-5.5); Red Cell Distribution Width 16.4 % (9.3-17.3); White Blood Count 10.4 T/CUMM (4-12)
[2021-04-18 05:41] LABS: Calcium 8.2 MG/DL (8.5-10.1); Potassium 4.1 MMOL/L (3.5-5.1)
[2021-04-18] MEDS: OXYBUTYNIN XL 10 MG TABLET PO SCH (09:55)
[2021-04-18] MEDS: PANTOPRAZOLE 40 MG TABLET PO SCH (09:55)
[2021-04-18] MEDS: ASPIRIN EC 81 MG TABLET PO SCH (09:56)
[2021-04-18] MEDS: FONDAPARINUX 2.5 MG/0.5 ML SYRINGE SUBCUT SCH (09:56)
[2021-04-18] MEDS: INSULIN LISPRO 100 UNIT/ML SUBCUT SCH ×4 (09:56→21:07)
[2021-04-18] MEDS: DOCUSATE SODIUM 100 MG CAPSULE PO SCH ×2 (09:56→21:07)
[2021-04-18] MEDS: DUTASTERIDE 0.5 MG CAPSULE PO SCH (09:56)
[2021-04-18] MEDS: MEMANTINE 10 MG TABLET PO SCH ×2 (09:56→21:08)
[2021-04-18] MEDS: METOPROLOL TARTRATE 25 MG TABLET PO SCH ×2 (09:56→21:07)
[2021-04-18] MEDS: DONEPEZIL 10 MG TABLET PO SCH (09:56)
[2021-04-19 04:56] LABS: Basophils # 0.1 10*3/uL (0.0-0.2); Basophils % 0.7 % (0.0-0.8); Eosinophils # 0.2 10*3/uL (0.0-0.87); Eosinophils % 2.4 % (0.00-10.9); Hematocrit 34.5 VOL% (42.0-52.0); Hemoglobin 11.1 GM/DL (14.0-18.0); Immature Granulocytes % 2.2 %; Immature Granulocytes Absolute 0.21 #; Lymphocytes # 1.4 10*3/uL (1.4-4.0); Lymphocytes % 15.2 % (21.2-54.2); Mean Corpuscular HGB Conc 32.2 GM/DL (32-36); Mean Corpuscular Volume 91.3 FL (87-102); Mean Platelet Volume 9.8 FL (9.6-12.0); Monocytes % 9.6 % (1.7-12.7); Neutrophils % 69.9 % (38.7-73.9); Platelet Count 368 T/CUMM (130-400); Red Blood Count 3.78 MC/CUMM (3.8-5.5); Red Cell Distribution Width 16.6 % (9.3-17.3); White Blood Count 9.4 T/CUMM (4-12)
[2021-04-19 05:10] LABS: Calcium 8.3 MG/DL (8.5-10.1); Potassium 3.5 MMOL/L (3.5-5.1)
[2021-04-19] MEDS: DONEPEZIL 10 MG TABLET PO SCH (09:34)
[2021-04-19] MEDS: METOPROLOL TARTRATE 25 MG TABLET PO SCH ×2 (09:34→21:41)
[2021-04-19] MEDS: DOCUSATE SODIUM 100 MG CAPSULE PO SCH ×2 (09:34→21:41)
[2021-04-19] MEDS: PANTOPRAZOLE 40 MG TABLET PO SCH (09:34)
[2021-04-19] MEDS: ASPIRIN EC 81 MG TABLET PO SCH (09:34)
[2021-04-19] MEDS: FONDAPARINUX 2.5 MG/0.5 ML SYRINGE SUBCUT SCH (09:34)
[2021-04-19] MEDS: OXYBUTYNIN XL 10 MG TABLET PO SCH (09:34)
[2021-04-19] MEDS: DUTASTERIDE 0.5 MG CAPSULE PO SCH (09:34)
[2021-04-19] MEDS: MEMANTINE 10 MG TABLET PO SCH ×2 (09:34→21:42)
[2021-04-19] MEDS: INSULIN LISPRO 100 UNIT/ML SUBCUT SCH ×4 (09:41→21:42)
[2021-04-19] MEDS: HALOPERIDOL 5 MG/ML AMP IM PRN (13:58)
[2021-04-20] MEDS: OXYBUTYNIN XL 10 MG TABLET PO SCH (08:28)
[2021-04-20] MEDS: DOCUSATE SODIUM 100 MG CAPSULE PO SCH ×2 (08:28→20:58)
[2021-04-20] MEDS: METOPROLOL TARTRATE 25 MG TABLET PO SCH ×2 (08:28→20:58)
[2021-04-20] MEDS: PANTOPRAZOLE 40 MG TABLET PO SCH (08:28)
[2021-04-20] MEDS: ASPIRIN EC 81 MG TABLET PO SCH (08:28)
[2021-04-20] MEDS: DUTASTERIDE 0.5 MG CAPSULE PO SCH (08:28)
[2021-04-20] MEDS: MEMANTINE 10 MG TABLET PO SCH ×2 (08:28→20:58)
[2021-04-20] MEDS: FONDAPARINUX 2.5 MG/0.5 ML SYRINGE SUBCUT SCH (08:29)
[2021-04-20] MEDS: INSULIN LISPRO 100 UNIT/ML SUBCUT SCH ×4 (10:31→20:59)
[2021-04-20] MEDS: ZALEPLON 5 MG CAPSULE PO PRN (20:58)
[2021-04-21] MEDS: HALOPERIDOL 5 MG/ML AMP IM PRN (00:29)
[2021-04-21] MEDS ORDERED: ZIPRASIDONE 20 MG/1 ML VIAL IM ONE (00:30)
[2021-04-21] MEDS: INSULIN LISPRO 100 UNIT/ML SUBCUT SCH ×2 (09:32→12:58)
[2021-04-21] MEDS: FONDAPARINUX 2.5 MG/0.5 ML SYRINGE SUBCUT SCH (09:32)
[2021-04-21] MEDS: METOPROLOL TARTRATE 25 MG TABLET PO SCH (09:32)
[2021-04-21] MEDS: DOCUSATE SODIUM 100 MG CAPSULE PO SCH (09:32)
[2021-04-21] MEDS: PANTOPRAZOLE 40 MG TABLET PO SCH (09:33)
[2021-04-21] MEDS: MEMANTINE 10 MG TABLET PO SCH (09:33)
[2021-04-21] MEDS: DUTASTERIDE 0.5 MG CAPSULE PO SCH (09:33)
[2021-04-21] MEDS: OXYBUTYNIN XL 10 MG TABLET PO SCH (09:33)
[2021-04-21] MEDS: ASPIRIN EC 81 MG TABLET PO SCH (09:33)
[2021-04-21 12:32] VITALS: BP 126/56
== END 2021-04-21 17:09 | DRG 481 ==
LOC: N.ED 10:26 → N.EDINP 12:48 → N.3E 19:07
PROVIDERS: ADMIT Family Medicine; ATTEND Family Medicine